=== PATIENT | female | born 1955 | race Caucasian/White ===

== ENCOUNTER 2019-03-15 08:49 | Observation (INO) ==
[2019-03-15] MEDS ORDERED: 0.9 % Sodium Chloride 1,000 ML IVC ONE (09:05)
[2019-03-15] MEDS ORDERED: Isovue-370 500 ML BOTTLE IVP ONE (09:07)
[2019-03-15] MEDS ORDERED: Ondansetron 4 MG/2 ML VIAL IVP ONE ×2 (09:09→11:44)
[2019-03-15] MEDS ORDERED: *HR* Morphine 2 MG/ML SYRINGE IVP ONE (09:10)
--- NOTE | 2019-03-15 09:11 | Emergency Department Note ---
Disposition Clinical Impression: Transaminitis, Febrile illness Abdominal pain Qualifiers: Abdominal location: epigastric Qualified Code(s): R10.13 - Epigastric pain Disposition: Admitted As Inpatient Referrals: Agueda Martin [Primary Care Provider] - Forms: ED Satisfaction Letter, Work/School Release General Adult HPI - General Chief complaint: ED Abdominal Pain Stated complaint: abd pain Time Seen by Provider: 03/15/19 08:52 Source: patient, family Limitations: no limitations - History of Present Illness Pain Scale: 9 - Related Data Home Medications Medication Instructions Recorded Confirmed Amlodipine Besylate mg PO DAILY 09/25/18 09/25/18 Aspirin [Adult Aspirin Regimen] 81 mg PO DAILY 09/25/18 03/15/19 Calcium Carb/Vitamin D3/Vit K1 1 each PO DAILY 09/25/18 03/15/19 [Calcium + D Soft Chewable Tab] Dexlansoprazole [Dexilant] 60 mg PO DAILY 09/25/18 03/15/19 Metoprolol Tartrate 100 mg PO BID 09/25/18 03/15/19 Metoprolol Tartrate [Lopressor] 50 mg PO BID 09/25/18 09/25/18 Mv,Ca,Iron,Mn/FA/Chol/Lance/PABA DAILY 09/25/18 [Body, Hair, Skin and Nails Cap] Naproxen [Naprosyn] 500 mg PO BID PRN 09/25/18 03/15/19 Rosuvastatin [Crestor] 20 mg PO DAILY 09/25/18 03/15/19 Sitagliptin Phos/Metformin HCl 1 each PO BID 09/25/18 03/15/19 [Janumet 50-500 mg Tablet] Vit A/C/E AC/Znox/Cupric Oxide 1 each PO DAILY 09/25/18 09/25/18 [Eye Vitamin-Minerals Tablet] hydroCHLOROthiazide 25 mg PO DAILY 09/25/18 03/15/19 [Hydrochlorothiazide] Previous Rx's Medication Instructions Recorded Ciprofloxacin HCl [Cipro] 500 mg PO BID #14 tablet 01/01/19 metroNIDAZOLE [Flagyl] 500 mg PO TID #21 tablet 01/01/19 Allergies Allergy/AdvReac Type Severity Reaction Status Date / Time acetaminophen [From Percocet] Allergy Hives Verified 03/15/19 09:20 Amoxicillin Allergy Hives Verified 03/15/19 09:20 clavulanic acid Allergy Hives Verified 03/15/19 09:20 [From Augmentin] codeine Allergy Hives Verified 03/15/19 09:20 etodolac Allergy Hives Verified 03/15/19 09:20 oxycodone [From Percocet] Allergy Hives Verified 03/15/19 09:20 fentanyl AdvReac Depression Verified 03/15/19 09:20 morphine AdvReac Hives Verified 03/15/19 09:20 Past Medical History - Past Medical History Medical history: Reports: diabetes, GERD, hyperlipidemia, hypertension, other Surgical history: Reports: appendectomy, cholecystectomy, hysterectomy Psychiatric history: Reports: no psych history - Social History Smoking Status: Former smoker Smokeless Tobacco Status: No Alcohol use: Reports: none Drug use: Reports: none Physical Exam - General Limitations: no limitations General appearance: alert, in no apparent distress Course Vital Signs Temperature 100.4 F H 03/15/19 08:55 Pulse Rate 103 03/15/19 08:55 Respiratory Rate 18 03/15/19 08:55 Blood Pressure 162/96 03/15/19 08:55 O2 Sat by Pulse Oximetry 96 03/15/19 08:55 Temperature 100.1 F H 03/15/19 10:44 Pulse Rate 90 03/15/19 10:44 Respiratory Rate 18 03/15/19 10:44 Blood Pressure 145/89 03/15/19 10:44 O2 Sat by Pulse Oximetry 95 03/15/19 10:44 Oxygen Delivery Oxygen Delivery Nasal Cannula Medical Decision Making - [facility] Narrative Medical decision making narrative: pt appears to have a right lower lobe infiltrate on CXR which would explain her fevers and cough. She is been treated for bronchitis since with Bactrim. Now she has this low-grade fever. She also having some epigastric discomfort. Recent diverticular disease. States she was treated with antibiotics for that a few weeks ago as well. We will workup the make sure there is no other abdominal pathology. Due to her fevers and epigastric pain with do a CT the abdomen and pelvis as well. - Lab Data Result diagrams: 03/15/19 09:14 03/15/19 09:14 Lab Results 03/15/19 03/15/19 03/15/19 Range/Units 09:14 09:14 09:14 WBC 6.1 (4.3-11.1) K/mcL RBC 4.63 (3.82-4.97) M/mcL Hgb 12.5 (11.5-15.4) g/dL Hct 38.4 (35.3-44.9) % MCV 82.9 L (83.0-100.0) fL MCH 27.0 L (28.0-33.3) pg MCHC 32.6 (31.6-35.5) g/dL RDW 14.4 (11.5-14.5) % Plt Count 105 L (140-400) K/mcL MPV 12.5 H (9.4-12.4) fL Immature Gran % 0.7 (0-4) % Seg Neutrophils % 86.3 % Lymphocytes % 4.6 % Monocytes % 4.9 % Eosinophils % 3.3 % Basophils % 0.2 % Neutrophils # 5.3 (1.6-8.9) K/mcL Lymphocytes # 0.3 L (0.6-4.6) K/mcL Monocytes # 0.3 (0.0-1.3) K/mcL Eosinophils # 0.2 (0.0-0.6) K/mcL Basophils # 0.0 (0.0-0.2) K/mcL PT 14.5 H (9.4-12.1) Seconds INR 1.3 Sodium 135 L (136-145) mEq/L Potassium 3.3 L (3.5-5.1) mEq/L Chloride 96 L (98-107) mEq/L Carbon Dioxide 27 (23-29) mEq/L BUN 15 (8-23) mg/dL Creatinine 0.83 (0.60-1.20) mg/dL Est GFR ( Amer) > 60 (> 60) Est GFR (Non-Af Amer) > 60 (> 60) BUN/Creatinine Ratio 18 (6-26) Glucose 148 H (70-105) mg/dL Calculated Osmolality 284 (280-300) Lactic Acid (0.5-2.2) mmol/L Calcium 9.2 (8.6-10.3) mg/dL Total Bilirubin 2.5 H (0.3-1.0) mg/dL Direct Bilirubin 1.0 H (0.0-0.2) mg/dL Indirect Bilirubin 1.5 H (0.0-1.2) mg/dL AST 271 H (13-39) Units/L ALT 245 H (7-52) Units/L Alkaline Phosphatase 141 H (34-104) Units/L Troponin I < 0.03 (< 0.04) ng/mL Serum Total Protein 7.4 (6.4-8.9) g/dL Albumin 4.0 (3.5-5.7) g/dL Globulin 3.4 (2.4-3.5) g/dL Albumin/Globulin Ratio 1.2 (1.1-2.2) Lipase 13 (11-82) Units/L Urine Color (Yellow) Urine Clarity (Clear) Urine pH (5.0-8.0) pH Units Ur Specific [place] (1.010-1.025) Urine Protein (Neg-Trace) mg/dL Urine Glucose (UA) (Normal) mg/dL Urine Ketones (Negative) mg/dL Urine Blood (Negative) Urine Nitrite (Negative) Urine Bilirubin (Negative) Urine Urobilinogen (Normal) mg/dL Ur Leukocyte Esterase (Negative) 03/15/19 03/15/19 Range/Units 09:14 10:42 WBC (4.3-11.1) K/mcL RBC (3.82-4.97) M/mcL Hgb (11.5-15.4) g/dL Hct (35.3-44.9) % MCV (83.0-100.0) fL MCH (28.0-33.3) pg MCHC (31.6-35.5) g/dL RDW (11.5-14.5) % Plt Count (140-400) K/mcL MPV (9.4-12.4) fL Immature Gran % (0-4) % Seg Neutrophils % % Lymphocytes % % Monocytes % % Eosinophils % % Basophils % % Neutrophils # (1.6-8.9) K/mcL Lymphocytes # (0.6-4.6) K/mcL Monocytes # (0.0-1.3) K/mcL Eosinophils # (0.0-0.6) K/mcL Basophils # (0.0-0.2) K/mcL PT (9.4-12.1) Seconds INR Sodium (136-145) mEq/L Potassium (3.5-5.1) mEq/L Chloride (98-107) mEq/L Carbon Dioxide (23-29) mEq/L BUN (8-23) mg/dL Creatinine (0.60-1.20) mg/dL Est GFR ( Amer) (> 60) Est GFR (Non-Af Amer) (> 60) BUN/Creatinine Ratio (6-26) Glucose (70-105) mg/dL Calculated Osmolality (280-300) Lactic Acid 1.9 (0.5-2.2) mmol/L Calcium (8.6-10.3) mg/dL Total Bilirubin (0.3-1.0) mg/dL Direct Bilirubin (0.0-0.2) mg/dL Indirect Bilirubin (0.0-1.2) mg/dL AST (13-39) Units/L ALT (7-52) Units/L Alkaline Phosphatase (34-104) Units/L Troponin I (< 0.04) ng/mL Serum Total Protein (6.4-8.9) g/dL Albumin (3.5-5.7) g/dL Globulin (2.4-3.5) g/dL Albumin/Globulin Ratio (1.1-2.2) Lipase (11-82) Units/L Urine Color Dark Yellow (Yellow) Urine Clarity Clear (Clear) Urine pH 6.0 (5.0-8.0) pH Units Ur Specific [place] 1.020 (1.010-1.025) Urine Protein 30 H (Neg-Trace) mg/dL Urine Glucose (UA) Normal (Normal) mg/dL Urine Ketones Negative (Negative) mg/dL Urine Blood Negative (Negative) Urine Nitrite Negative (Negative) Urine Bilirubin Small H (Negative) Urine Urobilinogen 2.0 H (Normal) mg/dL Ur Leukocyte Esterase Trace H (Negative) - EKG Data EKG #1 EKG attestation: Yes I reviewed and interpreted this EKG. EKG results narrative: EKG shows a rate of 102. Sinus tachycardia. Normal axis. AK interval 140. QRS 94. QTC 41. No signs acute ischemia. Attestation Statement - Attestation Attestation: I examined this patient and my medical decision-making was reviewed with the Resident Physician. I agree with the documented findings, disposition and treatment plan as described except to the extent set forth below.
[2019-03-15] MEDS ORDERED: Pantoprazole 40 MG VIAL IVP ONE (09:13)
--- NOTE | 2019-03-15 09:13 | Emergency Department Note ---
Disposition Clinical Impression: Transaminitis, Febrile illness Abdominal pain Qualifiers: Abdominal location: epigastric Qualified Code(s): R10.13 - Epigastric pain Disposition: Admitted As Inpatient Condition: Fair Referrals: Agueda Martin [Primary Care Provider] - Forms: ED Satisfaction Letter, Work/School Release Time of Disposition: 11:28 Abdominal Pain HPI - General Chief Complaint: ED Abdominal Pain Stated Complaint: abd pain Time Seen by Provider: 03/15/19 08:52 Source: patient, family Mode of arrival: ambulatory Limitations: no limitations Nursing Notes Reviewed: Yes Vital Signs Reviewed: Yes - History of Present Illness HPI Narrative: 63-year-old female with a history of hypertension, diabetes presents for evaluation of abdominal pain. Patient states she was recently treated for bronchitis last with Bactrim and Tessalon Perles. Patient notes epigastric pain that started the day following. States pain is worse after meals. Reports nausea and dry heaves. Denies any diarrhea or constipation. Denies any urinary complaints. Also states she has had a nonproductive cough. No notable fevers at home. No chest pain. Patient does feel short of breath. Patient was also recently treated for diverticular disease with left lower abdominal pain with Cipro Flagyl that pain has since resolved. Patient denies history of pancreatitis. Patient states she does not have her gallbladder or her appendix. She has no stents but states she does have narrowing of her coronaries from remote studies. Pain Scale: 9 - Related Data Home Medications Medication Instructions Recorded Confirmed Amlodipine Besylate mg PO DAILY 09/25/18 09/25/18 Aspirin [Adult Aspirin Regimen] 81 mg PO DAILY 09/25/18 03/15/19 Calcium Carb/Vitamin D3/Vit K1 1 each PO DAILY 09/25/18 03/15/19 [Calcium + D Soft Chewable Tab] Dexlansoprazole [Dexilant] 60 mg PO DAILY 09/25/18 03/15/19 Metoprolol Tartrate 100 mg PO BID 09/25/18 03/15/19 Metoprolol Tartrate [Lopressor] 50 mg PO BID 09/25/18 09/25/18 Mv,Ca,Iron,Mn/FA/Chol/Lance/PABA DAILY 09/25/18 [Body, Hair, Skin and Nails Cap] Naproxen [Naprosyn] 500 mg PO BID PRN 09/25/18 03/15/19 Rosuvastatin [Crestor] 20 mg PO DAILY 09/25/18 03/15/19 Sitagliptin Phos/Metformin HCl 1 each PO BID 09/25/18 03/15/19 [Janumet 50-500 mg Tablet] Vit A/C/E AC/Znox/Cupric Oxide 1 each PO DAILY 09/25/18 09/25/18 [Eye Vitamin-Minerals Tablet] hydroCHLOROthiazide 25 mg PO DAILY 09/25/18 03/15/19 [Hydrochlorothiazide] Previous Rx's Medication Instructions Recorded Ciprofloxacin HCl [Cipro] 500 mg PO BID #14 tablet 01/01/19 metroNIDAZOLE [Flagyl] 500 mg PO TID #21 tablet 01/01/19 Allergies Allergy/AdvReac Type Severity Reaction Status Date / Time acetaminophen [From Percocet] Allergy Hives Verified 03/15/19 09:20 Amoxicillin Allergy Hives Verified 03/15/19 09:20 clavulanic acid Allergy Hives Verified 03/15/19 09:20 [From Augmentin] codeine Allergy Hives Verified 03/15/19 09:20 etodolac Allergy Hives Verified 03/15/19 09:20 oxycodone [From Percocet] Allergy Hives Verified 03/15/19 09:20 fentanyl AdvReac Depression Verified 03/15/19 09:20 morphine AdvReac Hives Verified 03/15/19 09:20 All systems ED: reviewed and negative except as stated. Constitutional: Denies: fever Cardiovascular: Denies: chest pain Respiratory: Reports: cough, dyspnea Gastrointestinal: Reports: abdominal pain, nausea, vomiting Abdominal Pain PMH - Past Medical History Medical history: Reports: diabetes, GERD, hyperlipidemia, hypertension, other Female Surgical History: Reports: appendectomy, cholecystectomy, hysterectomy, other Psychiatric history: Reports: no psych history - Social History Smoking status: Former smoker Alcohol use: Reports: none Drug use: Reports: none Physical Exam - General Limitations: no limitations General appearance: alert, in no apparent distress - Head Head exam: atraumatic, normocephalic, normal inspection - Eye Eye exam: Present: normal appearance - ENT ENT exam: normal exam, mucous membranes dry - Neck Neck exam: Present: normal inspection - Chest Chest inspection: Present: normal inspection, symmetric chest wall rise - Respiratory Respiratory exam: Present: other (Scattered rhonchi). Absent: respiratory distress - Cardiovascular Cardiovascular exam: Present: tachycardia, normal heart sounds - Abdominal Exam Abdominal exam: Present: soft, tenderness. Absent: guarding, rebound - Extremities Exam Extremities exam: Present: normal inspection. Absent: pedal edema - Back Exam Back exam: Present: normal inspection - Neurological Exam Neurological exam: Present: alert, CN II-XII intact - Skin Skin exam: Present: warm, dry, intact, normal color. Absent: rash Course Course Narrative: Patient seen and examined. Patient does meet surgical criteria with her tachycardia and her temperature. Patient will get basic labs including lactate and blood cultures. Patient also get a chest x-ray and CT of the abdomen pelvis given concerns of epigastric pain with a fever. Patient also get appropriate pain control. Disposition anticipated for admission. - Reevaluation(s) Reevaluation #1: Given history of cough as well as fever. Patient will treated clinically for pneumonia. Patient be treated for community acquired pneumonia. Time: 09:40 Reevaluation #2: Patient does have abnormal liver function. Patient denies any recent change in food groups or travel. No history of hepatitis in the past. We will obtain a viral hepatitis panel. Patient's resting comfortably. Time: 09:59 Vital Signs Temperature 100.4 F H 03/15/19 08:55 Pulse Rate 103 03/15/19 08:55 Respiratory Rate 18 03/15/19 08:55 Blood Pressure 162/96 03/15/19 08:55 O2 Sat by Pulse Oximetry 96 03/15/19 08:55 Temperature 100.1 F H 03/15/19 10:44 Pulse Rate 90 03/15/19 10:44 Respiratory Rate 18 03/15/19 10:44 Blood Pressure 145/89 03/15/19 10:44 O2 Sat by Pulse Oximetry 95 03/15/19 10:44 Oxygen Delivery Oxygen Delivery Nasal Cannula Abdominal Pain - [facility] Narrative Medical decision making narrative: Patient presented for concerns of abdominal pain. On exam the patient did have surgical criteria. Patient was treated empirically for pneumonia with her history of cough and fever. Patient was given Rocephin and Zithromax. Patient's lab show transaminitis. Patient does not have her gallbladder. Patient's pain is primarily in the epigastrium. Patient CT scan shows no acute abnormalities. Given the patient's fever as well as transaminitis the patient will be admitted for abdominal pain. Patient's urine shows no signs of infection. Patient has been on several antibiotics in the outpatient setting recently covering for diverticular disease as well as bronchitis. - Lab Data Lab results reviewed: Yes I reviewed the patient's lab results. Result diagrams: 03/15/19 09:14 03/15/19 09:14 Lab Results 03/15/19 03/15/19 03/15/19 Range/Units 09:14 09:14 09:14 WBC 6.1 (4.3-11.1) K/mcL RBC 4.63 (3.82-4.97) M/mcL Hgb 12.5 (11.5-15.4) g/dL Hct 38.4 (35.3-44.9) % MCV 82.9 L (83.0-100.0) fL MCH 27.0 L (28.0-33.3) pg MCHC 32.6 (31.6-35.5) g/dL RDW 14.4 (11.5-14.5) % Plt Count 105 L (140-400) K/mcL MPV 12.5 H (9.4-12.4) fL Immature Gran % 0.7 (0-4) % Seg Neutrophils % 86.3 % Lymphocytes % 4.6 % Monocytes % 4.9 % Eosinophils % 3.3 % Basophils % 0.2 % Neutrophils # 5.3 (1.6-8.9) K/mcL Lymphocytes # 0.3 L (0.6-4.6) K/mcL Monocytes # 0.3 (0.0-1.3) K/mcL Eosinophils # 0.2 (0.0-0.6) K/mcL Basophils # 0.0 (0.0-0.2) K/mcL PT 14.5 H (9.4-12.1) Seconds INR 1.3 Sodium 135 L (136-145) mEq/L Potassium 3.3 L (3.5-5.1) mEq/L Chloride 96 L (98-107) mEq/L Carbon Dioxide 27 (23-29) mEq/L BUN 15 (8-23) mg/dL Creatinine 0.83 (0.60-1.20) mg/dL Est GFR ( Amer) > 60 (> 60) Est GFR (Non-Af Amer) > 60 (> 60) BUN/Creatinine Ratio 18 (6-26) Glucose 148 H (70-105) mg/dL Calculated Osmolality 284 (280-300) Lactic Acid (0.5-2.2) mmol/L Calcium 9.2 (8.6-10.3) mg/dL Total Bilirubin 2.5 H (0.3-1.0) mg/dL Direct Bilirubin 1.0 H (0.0-0.2) mg/dL Indirect Bilirubin 1.5 H (0.0-1.2) mg/dL AST 271 H (13-39) Units/L ALT 245 H (7-52) Units/L Alkaline Phosphatase 141 H (34-104) Units/L Troponin I < 0.03 (< 0.04) ng/mL Serum Total Protein 7.4 (6.4-8.9) g/dL Albumin 4.0 (3.5-5.7) g/dL Globulin 3.4 (2.4-3.5) g/dL Albumin/Globulin Ratio 1.2 (1.1-2.2) Lipase 13 (11-82) Units/L Urine Color (Yellow) Urine Clarity (Clear) Urine pH (5.0-8.0) pH Units Ur Specific [place] (1.010-1.025) Urine Protein (Neg-Trace) mg/dL Urine Glucose (UA) (Normal) mg/dL Urine Ketones (Negative) mg/dL Urine Blood (Negative) Urine Nitrite (Negative) Urine Bilirubin (Negative) Urine Urobilinogen (Normal) mg/dL Ur Leukocyte Esterase (Negative) Urine Microscopic WBC (0-3) per hpf Ur Squamous Epith Cells (None-Few) per lpf Urine Bacteria (None-Few) per hpf Hyaline Casts (None-Few) per lpf Ur Culture Indicated? (NO) 03/15/19 03/15/19 Range/Units 09:14 10:42 WBC (4.3-11.1) K/mcL RBC (3.82-4.97) M/mcL Hgb (11.5-15.4) g/dL Hct (35.3-44.9) % MCV (83.0-100.0) fL MCH (28.0-33.3) pg MCHC (31.6-35.5) g/dL RDW (11.5-14.5) % Plt Count (140-400) K/mcL MPV (9.4-12.4) fL Immature Gran % (0-4) % Seg Neutrophils % % Lymphocytes % % Monocytes % % Eosinophils % % Basophils % % Neutrophils # (1.6-8.9) K/mcL Lymphocytes # (0.6-4.6) K/mcL Monocytes # (0.0-1.3) K/mcL Eosinophils # (0.0-0.6) K/mcL Basophils # (0.0-0.2) K/mcL PT (9.4-12.1) Seconds INR Sodium (136-145) mEq/L Potassium (3.5-5.1) mEq/L Chloride (98-107) mEq/L Carbon Dioxide (23-29) mEq/L BUN (8-23) mg/dL Creatinine (0.60-1.20) mg/dL Est GFR ( Amer) (> 60) Est GFR (Non-Af Amer) (> 60) BUN/Creatinine Ratio (6-26) Glucose (70-105) mg/dL Calculated Osmolality (280-300) Lactic Acid 1.9 (0.5-2.2) mmol/L Calcium (8.6-10.3) mg/dL Total Bilirubin (0.3-1.0) mg/dL Direct Bilirubin (0.0-0.2) mg/dL Indirect Bilirubin (0.0-1.2) mg/dL AST (13-39) Units/L ALT (7-52) Units/L Alkaline Phosphatase (34-104) Units/L Troponin I (< 0.04) ng/mL Serum Total Protein (6.4-8.9) g/dL Albumin (3.5-5.7) g/dL Globulin (2.4-3.5) g/dL Albumin/Globulin Ratio (1.1-2.2) Lipase (11-82) Units/L Urine Color Dark Yellow (Yellow) Urine Clarity Clear (Clear) Urine pH 6.0 (5.0-8.0) pH Units Ur Specific [place] 1.020 (1.010-1.025) Urine Protein 30 H (Neg-Trace) mg/dL Urine Glucose (UA) Normal (Normal) mg/dL Urine Ketones Negative (Negative) mg/dL Urine Blood Negative (Negative) Urine Nitrite Negative (Negative) Urine Bilirubin Small H (Negative) Urine Urobilinogen 2.0 H (Normal) mg/dL Ur Leukocyte Esterase Trace H (Negative) Urine Microscopic WBC 3-5 H (0-3) per hpf Ur Squamous Epith Cells Many H (None-Few) per lpf Urine Bacteria None Seen (None-Few) per hpf Hyaline Casts None Seen (None-Few) per lpf Ur Culture Indicated? NO. A (NO) - Radiology Data Radiology results reviewed: Yes I reviewed the patient's radiology results. Abdomen/Pelvis CT 03/15/19 09:07 IMPRESSION: 1. No acute abnormality identified within the abdomen or pelvis. 2. Diverticulosis of the colon without acute diverticulitis. 3. There is a small lower ventral wall hernia containing a portion of colon. No bowel obstruction. 4. Nonobstructing right renal stone. 5. Diffuse fatty infiltration of the liver. D/ / Kwasi Lockwood MD / Kwasi Lockwood MD Interpreting Provider: Kwasi Lockwood MD Chest X-Ray 03/15/19 09:08 IMPRESSION: No acute pulmonary finding. D/ / Christian Guzman MD / Christian Guzman MD Interpreting Provider: Christian Guzman MD - EKG Data EKG attestation: Yes I reviewed and interpreted this EKG. EKG shows normal: sinus rhythm Rate: tachycardia Rhythm: NSR [place]/QRS: normal Q waves: aVR T wave inversions noted in: III, v1 Interpretation: no acute changes, nonspecific ST-T wave changes S.B.ASaniaRSania - [email or web address] Situation: Demographics Background: Presenting Complaint Assessment: Vital Signs, Course and respsone to treatment, Patient/Family Expectation Recommendation: Barrier(s) to disposition, Recommendation based on pending studies, treatments, or consults S.B.A.Abraham Report Given to: Dr. Folsusana Greene Repor Time: 11:28
[2019-03-15] MEDS ORDERED: *HR* HYDROmorphone (PF) 1 MG/ML SYRINGE IVP ONE (09:22)
[2019-03-15] MEDS ORDERED: Azithromycin 500 MG in D5% in Water 250 ML IVPB ONE (09:24)
[2019-03-15] MEDS ORDERED: cefTRIAXone 1,000 MG in Water for inj. (sterile) 20 ML 10 ML IVP ONE (09:24)
[2019-03-15 09:26] LABS: Basophils % 0.2 %; Eosinophils # 0.2 K/mcL (0.0-0.6); Eosinophils % 3.3 %; Hematocrit 38.4 % (35.3-44.9); Hemoglobin 12.5 g/dL (11.5-15.4); Immature Granulocytes % 0.7 % (0-4); Lymphocytes # 0.3 K/mcL (0.6-4.6); Lymphocytes % 4.6 %; Mean Corpuscular HGB Conc 32.6 g/dL (31.6-35.5); Mean Corpuscular Volume 82.9 fL (83.0-100.0); Mean Platelet Volume 12.5 fL (9.4-12.4); Monocytes # 0.3 K/mcL (0.0-1.3); Monocytes % 4.9 %; Neutrophils # 5.3 K/mcL (1.6-8.9); Platelet Count 105 K/mcL (140-400); Red Blood Count 4.63 M/mcL (3.82-4.97); Red Cell Distribution Width 14.4 % (11.5-14.5); Segmented Neutrophils % 86.3 %
[2019-03-15 09:34] LABS: INR 1.3; Prothrombin Time 14.5 Seconds (9.4-12.1)
[2019-03-15 09:49] LABS: Alanine Aminotransferase 245 Units/L (7-52); Albumin/Globulin Ratio 1.2 (1.1-2.2); Alkaline Phosphatase 141 Units/L (34-104); Aspartate Amino Transferase 271 Units/L (13-39); BUN/Creatinine Ratio 18 (6-26); Bilirubin,Indirect 1.5 mg/dL (0.0-1.2); Bilirubin,Total 2.5 mg/dL (0.3-1.0); Blood Urea Nitrogen 15 mg/dL (8-23); Calcium 9.2 mg/dL (8.6-10.3); Carbon Dioxide 27 mEq/L (23-29); Chloride 96 mEq/L (98-107); Globulin 3.4 g/dL (2.4-3.5); Glucose 148 mg/dL (70-105); Lipase 13 Units/L (11-82); Osmolality,Calculated 284 (280-300); Potassium 3.3 mEq/L (3.5-5.1); Sodium 135 mEq/L (136-145); Total Protein 7.4 g/dL (6.4-8.9); Troponin I < 0.03 ng/mL (< 0.04); eGFR For Non-African Americans > 60 (> 60)
[2019-03-15 10:54] LABS: Bilirubin,Urine Small (Negative); Blood,Urine Negative (Negative); Clarity,Urine Clear (Clear); Color,Urine Dark Yellow (Yellow); Glucose,Urine (UA) Normal (Normal); Ketones,Urine Negative (Negative); Leukocyte Esterase,Urine Trace (Negative); Nitrite,Urine Negative (Negative); Protein,Urine 30 mg/dL (Neg-Trace)
[2019-03-15 10:56] LABS: Bacteria,Urine None Seen per hpf (None-Few); Hyaline Casts,Urine None Seen per lpf (None-Few); Squamous Epithelial Cell,Urine Many per lpf (None-Few)
[2019-03-15] MEDS ORDERED: Naloxone 0.4 MG/ML INJ IVP PRN (11:36)
[2019-03-15] MEDS ORDERED: D5% in Water 1,000 ML IVC PRN (11:40)
[2019-03-15] MEDS ORDERED: *HR* Dextrose 50 % in Water (Syg) 50 ML SYRINGE IVP PRN (11:40)
[2019-03-15] MEDS ORDERED: Dextrose Gel 15 GM/37.5 ML TUBE PO PRN ×2 (11:40)
[2019-03-15] MEDS ORDERED: traMADol 50 MG TABLET PO PRN (11:43)
[2019-03-15 11:50] LABS: Estimated Average Glucose 128 mg/dl; Hemoglobin A1C 6.1 %
--- NOTE | 2019-03-15 12:17 | Internal Med History&Physical ---
Date of Encounter: 03/15/19 Time of Encounter: 12:00 Internal Medicine - H&P: HPI Chief complaint: Abdominal pain since History of present illness: Ms. Richard is a 63 year old female with pmh of diabetes, dyslipidemia presenting with complaints of abdominal pain since . Patient says she had had some coughing for a while and went to her PCP who prescribed her a course of bactrim for acute bronchitis. She says after the 2nd dose of bactrim, she began to experience an achy abdominal pain in the epigastric area, non radiating that prevented her from sleeping. Pain is worse with meals and associated with nausea. She denies any fevres, admits to intermittent chills, denies any diarrhea. She came to the ER, because the pain wasn' t going away. In the ER, workup was essentially normal, but she was noted to have a transminitis. She also had a low grade fever of 100.4. She was started on fluids and ceftriaxone and azithromycin and she is being admitted for further management Past Med Surg Social Fam HX - Past Medical History Medical history: diabetes, GERD, hyperlipidemia, hypertension, other Additional medical history: HERNIA, DIVERTICULITIS, IRRITANT DERMATITIS Psychiatric history: no psych history - Past Surgical History Surgical History: appendectomy, cholecystectomy, hysterectomy Additional surgical history: bowel obs. repair, cyst removal - Social History Smoking Status: Former smoker Smokeless Tobacco Status: No Alcohol use: none Drug use: none Internal Medicine - H&P: Meds Amlodipine Besylate mg PO DAILY 09/25/18 [History] Aspirin [Adult Aspirin Regimen] 81 mg PO DAILY 09/25/18 [History] Calcium Carb/Vitamin D3/Vit K1 [Calcium + D Soft Chewable Tab] 1 each PO DAILY 09/25/18 [History] Dexlansoprazole [Dexilant] 60 mg PO DAILY 09/25/18 [History] Metoprolol Tartrate 100 mg PO BID 09/25/18 [History] Metoprolol Tartrate [Lopressor] 50 mg PO BID 09/25/18 [History] Mv,Ca,Iron,Mn/FA/Chol/Lance/PABA [Body, Hair, Skin and Nails Cap] DAILY 09/25/18 [History] Naproxen [Naprosyn] 500 mg PO BID PRN 09/25/18 [History] Rosuvastatin [Crestor] 20 mg PO DAILY 09/25/18 [History] Sitagliptin Phos/Metformin HCl [Janumet 50-500 mg Tablet] 1 each PO BID 09/25/18 [History] Vit A/C/E AC/Znox/Cupric Oxide [Eye Vitamin-Minerals Tablet] 1 each PO DAILY 09/25/18 [History] hydroCHLOROthiazide [Hydrochlorothiazide] 25 mg PO DAILY 09/25/18 [History] Ciprofloxacin HCl [Cipro] 500 mg PO BID #14 tablet 01/01/19 [Rx] metroNIDAZOLE [Flagyl] 500 mg PO TID #21 tablet 01/01/19 [Rx] Allergy/AdvReac Type Severity Reaction Status Date / Time acetaminophen [From Percocet] Allergy Hives Verified 03/15/19 09:20 Amoxicillin Allergy Hives Verified 03/15/19 09:20 clavulanic acid Allergy Hives Verified 03/15/19 09:20 [From Augmentin] codeine Allergy Hives Verified 03/15/19 09:20 etodolac Allergy Hives Verified 03/15/19 09:20 oxycodone [From Percocet] Allergy Hives Verified 03/15/19 09:20 fentanyl AdvReac Depression Verified 03/15/19 09:20 morphine AdvReac Hives Verified 03/15/19 09:20 All Systems PM: A 10-system review of systems was performed and is negative for pertinent findings except as documented above in the HPI. - Constitutional Constitutional: no chills, no fever(s), no night sweats - EENT Eyes: no change in vision, no discharge, no pain, no photophobia Ears: no ear discharge, no ear pain, no tinnitus Nose, mouth and throat: no dysphagia, no nasal discharge, no neck pain, no sore throat - Cardiovascular Cardiovascular ROS IM: no chest pain, no diaphoresis, no dyspnea, no lightheadedness, no palpitations, no syncope - Respiratory Respiratory: no cough, no dyspnea, no wheezing, no excessive phlegm production - Gastrointestinal Gastrointestinal: abdominal pain, no diarrhea, no hematemesis, no hematochezia, no melena, no nausea, no vomiting - Genitourinary Genitourinary: no change in urinary stream, no dysuria, no flank pain, no hematuria - Musculoskeletal Musculoskeletal ROS IM: no numbness, no tingling - Integumentary Integumentary IM: no rash, no unusual bruising - Neurological Neurological ROS: no confusion, no convulsions, no focal weakness, no numbness, no tingling, no tremor(s) - Hematologic/Lymphatic Hematologic/Lymphatic: no easy bruising - Constitutional Vitals: Temp Pulse Resp BP Pulse Ox 99.1 F 81 18 142/86 96 03/15/19 11:44 03/15/19 11:44 03/15/19 12:09 03/15/19 12:09 03/15/19 11:44 Exam: NAD - Head Head exam: Present: atraumatic, normocephalic - Eye Eye exam: Present: PERRL, conjuntiva pink, sclera anicteric Pupils: Present: PERRL - Neck Neck exam general surgery: Present: supple, trachea midline. Absent: lymphadenopathy - Respiratory Respiratory exam: Present: CTAB. Absent: accessory muscle use, rales, rhonchi, wheezes - Cardiovascular Cardiovascular exam: Present: RRR, +S1, +S2. Absent: diastolic murmur, gallop, rubs, systolic murmur - GI/Abdominal GI/Abdominal exam: Present: normal bowel sounds, soft, no peritoneal signs. Absent: distended, tenderness - Extremities Exam Extremities exam: Present: warm, radial pulses palpable and symmetrical. Absent: calf tenderness, cyanotic, pedal edema - Neurological Exam Neurological exam: Present: CN II-XII intact, oriented X3, no focal deficits. Absent: pronater drift, facial droop, speech deficit - Skin Skin exam: Present: dry, intact Internal Med - H&P Results - Labs CBC & Chem 7: 03/15/19 09:14 03/15/19 09:14 Labs: Short CBC 03/15/19 Range/Units 09:14 WBC 6.1 (4.3-11.1) K/mcL Hgb 12.5 (11.5-15.4) g/dL Hct 38.4 (35.3-44.9) % Plt Count 105 L (140-400) K/mcL Neutrophils # 5.3 (1.6-8.9) K/mcL BMP 03/15/19 09:14 Sodium 135 L Potassium 3.3 L Chloride 96 L Carbon Dioxide 27 BUN 15 Creatinine 0.83 Glucose 148 H Calcium 9.2 Cardiac Enzymes 03/15/19 Range/Units 09:14 Troponin I < 0.03 (< 0.04) ng/mL Liver Function 03/15/19 Range/Units 09:14 Total Bilirubin 2.5 H (0.3-1.0) mg/dL Direct Bilirubin 1.0 H (0.0-0.2) mg/dL AST 271 H (13-39) Units/L ALT 245 H (7-52) Units/L Alkaline Phosphatase 141 H (34-104) Units/L Albumin 4.0 (3.5-5.7) g/dL Urine 03/15/19 Range/Units 10:42 Urine Color Dark Yellow (Yellow) Urine Clarity Clear (Clear) Urine pH 6.0 (5.0-8.0) pH Units Ur Specific [place] 1.020 (1.010-1.025) Urine Protein 30 H (Neg-Trace) mg/dL Urine Glucose (UA) Normal (Normal) mg/dL - Impressions ITS Impressions Abdomen/Pelvis CT 03/15/19 09:07 IMPRESSION: 1. No acute abnormality identified within the abdomen or pelvis. 2. Diverticulosis of the colon without acute diverticulitis. 3. There is a small lower ventral wall hernia containing a portion of colon. No bowel obstruction. 4. Nonobstructing right renal stone. 5. Diffuse fatty infiltration of the liver. D/ / Kwasi Lockwood MD / Kwasi Lockwood MD Interpreting Provider: Kwasi Lockwood MD Chest X-Ray 03/15/19 09:08 IMPRESSION: No acute pulmonary finding. D/ / Christian Guzman MD / Christian Guzman MD Interpreting Provider: Christian Guzman MD - Assessment and Plan (1) Abdominal pain Current Visit: Yes Status: Acute Assessment and plan: Pt comes in with abdominal pain of 4 days duration after taking bactrim and transaminitis CT abdomen negative for any acute pathology. HAs mildy elevated LFTs in the 200s Possibly secondary to bactrim induced cholestasis. Will hydrate , hold bactrim, pain control Trend LFTs. Hepatitis panel ordered. Denies alcohol abuse Qualifiers: Abdominal location: epigastric Qualified Code(s): R10.13 - Epigastric pain (2) Transaminitis Current Visit: Yes Status: Acute Assessment and plan: See #1. Hydration and monitor LFTS. F/U hepatitis panel CT negative for any acute findings (3) Fever Current Visit: Yes Status: Acute Assessment and plan: Unclear etiology. HAd low grade fever of 100.4 on arrival. Admits to viral bronchitis which she completed 5 dose s of bactrim for Received cefriaxone and azithromycin in ER. CXR and CT abdomen negative for any source of infection Hold antibiotics. Blood cultures ordered. Obtain respiratory panel Qualifiers: Qualified Code(s): R50.9 - Fever, unspecified (4) Diabetes Current Visit: Yes Status: Acute Assessment and plan: Continue insulin and monitor fingersticks Qualifiers: Qualified Code(s): E11.9 - Type 2 diabetes mellitus without complications (5) Hypokalemia Current Visit: Yes Status: Acute Assessment and plan: Replaced (6) DVT prophylaxis Current Visit: Yes Status: Acute Assessment and plan: heparin sc - Time Spent With Patient Total time spent is greater than 50% in coordination of care (as documented) at patient's floor/unit and/or counseling patient:
[2019-03-15] MEDS ORDERED: Ondansetron 4 MG/2 ML VIAL IVP PRN (12:25)
[2019-03-15] MEDS: 0.9 % Sodium Chloride 1,000 ML IVC SCH ×2 (13:51→22:47)
[2019-03-15 16:13] LABS: Adenovirus Not Detected (Not Detect); Bordetella Pertussis Not Detected (Not Detect); Chlamydophila pneumoniae Not Detected (Not Detect); Coronavirus 229E Not Detected (Not Detect); Coronavirus HKU1 Not Detected (Not Detect); Coronavirus NL63 Not Detected (Not Detect); Coronavirus OC43 Not Detected (Not Detect); Human Metapneumovirus DETECTED (Not Detect); Human Rhinovirus/Enterovirus Not Detected (Not Detect); Influenza A Subtype 2009 H1 Not Detected (Not Detect); Influenza A Untypeable Not Detected (Not Detect); Influenza B Not Detected (Not Detect); Mycoplasma pneumoniae Not Detected (Not Detect); Parainfluenza Virus 1 Not Detected (Not Detect); Parainfluenza Virus 2 Not Detected (Not Detect); Parainfluenza Virus 3 Not Detected (Not Detect); Parainfluenza Virus 4 Not Detected (Not Detect); Respiratory Syncytial Virus Not Detected (Not Detect)
[2019-03-15] MEDS: Insulin LISPRO 300 UNITS/3 ML VIAL SQ SCH (17:57)
[2019-03-15] MEDS: Ibuprofen 600 MG TABLET PO PRN (19:02)
[2019-03-15] MEDS: Metoprolol 100 MG TABLET PO SCH (21:30)
[2019-03-16 04:08] LABS: Basophils % 0.3 %; Hematocrit 38.6 % (35.3-44.9)
[2019-03-16 04:10] LABS: Eosinophils # 0.2 K/mcL (0.0-0.6); Eosinophils % 4.1 %; Hemoglobin 12.1 g/dL (11.5-15.4); Immature Granulocytes % 0.5 % (0-4); Immature Platelets 10.7 % (1.1-6.1); Lymphocytes # 0.5 K/mcL (0.6-4.6); Lymphocytes % 13.4 %; Mean Corpuscular HGB Conc 31.3 g/dL (31.6-35.5); Mean Corpuscular Hemoglobin 27.1 pg (28.0-33.3); Mean Corpuscular Volume 86.4 fL (83.0-100.0); Mean Platelet Volume 12.4 fL (9.4-12.4); Monocytes # 0.3 K/mcL (0.0-1.3); Monocytes % 7.7 %; Neutrophils # 2.7 K/mcL (1.6-8.9); Platelet Count 100 K/mcL (140-400); Red Blood Count 4.47 M/mcL (3.82-4.97); Red Cell Distribution Width 14.8 % (11.5-14.5)
[2019-03-16 04:14] LABS: Platelet Estimate Decreased (Normal)
[2019-03-16 04:28] LABS: BUN/Creatinine Ratio 18 (6-26); Blood Urea Nitrogen 12 mg/dL (8-23); Calcium 8.8 mg/dL (8.6-10.3); Carbon Dioxide 28 mEq/L (23-29); Chloride 102 mEq/L (98-107); Glucose 101 mg/dL (70-105); Magnesium 1.6 mg/dL (1.6-2.6); Osmolality,Calculated 286 (280-300); Phosphorous 2.2 mg/dL (2.7-4.5); Potassium 3.5 mEq/L (3.5-5.1); Sodium 138 mEq/L (136-145); eGFR For Non-African Americans > 60 (> 60)
[2019-03-16 04:30] LABS: Albumin 3.7 g/dL (3.5-5.7); Albumin/Globulin Ratio 1.1 (1.1-2.2); Bilirubin,Direct 0.6 mg/dL (0.0-0.2); Bilirubin,Indirect 1.1 mg/dL (0.0-1.2); Bilirubin,Total 1.7 mg/dL (0.3-1.0); Globulin 3.3 g/dL (2.4-3.5)
[2019-03-16 05:09] VITALS: BP 128/73
[2019-03-16] MEDS: Ibuprofen 600 MG TABLET PO PRN (05:09)
[2019-03-16] MEDS: Insulin LISPRO 300 UNITS/3 ML VIAL SQ SCH (08:43)
[2019-03-16] MEDS: Metoprolol 100 MG TABLET PO SCH (08:47)
[2019-03-16] MEDS: 0.9 % Sodium Chloride 1,000 ML IVC SCH (08:47)
[2019-03-16] MEDS ORDERED: Aspirin Enteric Coated 81 MG Tablet PO SCH (09:00)
[2019-03-16] MEDS ORDERED: Cholecalciferol (D-3) 1,000 UNIT TABLET PO SCH (09:00)
--- NOTE | 2019-03-16 09:39 | Discharge Summary ---
- NOTES TO OUTPATIENT PROVIDER Notes to Outpatient Provider: Repeat LFT in 3 days. Orders not resulted at time of discharge: Pending orders 03/15/19 09:14 Culture,Blood [] Stat Viral hepatitis panel [Hepatitis Prof.(Routine A,B,C)] Stat Date of Encounter: 03/16/19 Time of Encounter: 07:45 - Discharge Diagnosis (1) Abdominal pain Priority: Primary Status: Acute Qualifiers: Abdominal location: epigastric Qualified Code(s): R10.13 - Epigastric pain (2) Transaminitis Priority: Secondary Status: Acute (3) Diabetes Priority: Secondary Status: Acute Qualifiers: Qualified Code(s): E11.9 - Type 2 diabetes mellitus without complications (4) Hypokalemia Priority: Secondary Status: Acute (5) Fever Priority: Secondary Status: Acute Qualifiers: Qualified Code(s): R50.9 - Fever, unspecified (6) DVT prophylaxis Priority: Secondary Status: Acute (7) URI (upper respiratory infection) Priority: Secondary Status: Acute Qualifiers: URI type: unspecified viral URI Qualified Code(s): J06.9 - Acute upper respiratory infection, unspecified Hospital course: Ms. Richard is a 63 year old female with history of diabetes, hypertension, hyperlipidemia, morbid obesity, who was admitted for abdominal pain and transaminitis. She was recently started on Bactrim for presumably infectious bronchitis. AST/ALT were in the 200s associated with total bilirubin of 2.5. Spontaneously improved. CT did not show any acute pathology other than fatty liver. Respiratory infection panel was +ve for metapneumovirus. She will be discharged home with repeat LFT in 3 days time symptomatically management for URI. Discharge discussed with: patient, nurse - Time Spent with Patient Total time spent providing and/or coordinating discharge services: 25 mins - Discharge Medications Prescriptions: Continued Metoprolol Tartrate 100 mg PO BID hydroCHLOROthiazide [Hydrochlorothiazide] 25 mg PO DAILY Sitagliptin Phos/Metformin HCl [Janumet 50-500 mg Tablet] 1 tab PO BID Rosuvastatin [Crestor] 20 mg PO DAILY Dexlansoprazole [Dexilant] 60 mg PO DAILY amLODIPine [Norvasc] 5 mg PO BID Aspirin [Adult Aspirin Regimen] 81 mg PO DAILY B Infantis/B Ani/B Tung/B Bifid [Gnp Probiotic 4X Caplet] 1 tab PO DAILY Calcium Carbonate/Vitamin D3 [Calcium 600-Vit D3 800 Tablet] 1 tab PO DAILY Mv,Leonel,Iron,Mn/Folic Acid/Chol [Hair, Skin and Nails Capsule] 1 cap PO DAILY Naproxen Sodium [Naproxen Sodium ER] 500 mg PO BID Non-Formulary Medication 1 tab PO DAILY Home Medications: Dexlansoprazole [Dexilant] 60 mg PO DAILY 09/25/18 [History] Metoprolol Tartrate 100 mg PO BID 09/25/18 [History] Rosuvastatin [Crestor] 20 mg PO DAILY 09/25/18 [History] Sitagliptin Phos/Metformin HCl [Janumet 50-500 mg Tablet] 1 tab PO BID 09/25/18 [History] hydroCHLOROthiazide [Hydrochlorothiazide] 25 mg PO DAILY 09/25/18 [History] Aspirin [Adult Aspirin Regimen] 81 mg PO DAILY 03/16/19 [History] B Infantis/B Ani/B Tung/B Bifid [Gnp Probiotic 4X Caplet] 1 tab PO DAILY 03/16/19 [History] Calcium Carbonate/Vitamin D3 [Calcium 600-Vit D3 800 Tablet] 1 tab PO DAILY 03/16/19 [History] Mv,Leonel,Iron,Mn/Folic Acid/Chol [Hair, Skin and Nails Capsule] 1 cap PO DAILY 03/16/19 [History] Naproxen Sodium [Naproxen Sodium ER] 500 mg PO BID 03/16/19 [History] Non-Formulary Medication 1 tab PO DAILY 03/16/19 [History] amLODIPine [Norvasc] 5 mg PO BID 03/16/19 [History] Allergies/Adverse Reactions: Allergy/AdvReac Type Severity Reaction Status Date / Time acetaminophen [From Percocet] Allergy Hives Verified 03/15/19 09:20 Amoxicillin Allergy Hives Verified 03/15/19 09:20 clavulanic acid Allergy Hives Verified 03/15/19 09:20 [From Augmentin] codeine Allergy Hives Verified 03/15/19 09:20 etodolac Allergy Hives Verified 03/15/19 09:20 oxycodone [From Percocet] Allergy Hives Verified 03/15/19 09:20 fentanyl AdvReac Depression Verified 03/15/19 09:20 morphine AdvReac Hives Verified 03/15/19 09:20 Date of admission: 03/15/19 11:34 Primary care physician: Agueda Martin - Constitutional Vitals: Temp Pulse Resp BP Pulse Ox 97.7 F 75 14 128/73 93 03/16/19 05:07 03/16/19 05:07 03/16/19 05:07 03/16/19 05:07 03/16/19 05:07 Exam: General: Alert and oriented, not in acute distress. Cardiovascular:Normal S1 & S2, No JVD. Pulse regular. Lungs: clear to auscultation, no wheezes/rales Abdomen:Soft, non-tender, no rigidity. Alba's negative Extremities:No deformity or swelling Neurological:Normal cognition and motor skills. Non-focal - Patient Status Disposition: Home, Self-Care Condition: Fair Functional capacity at discharge: independent ambulation Overall status at discharge: patient is progressing back to baseline - Discharge Instructions Instructions: Diabetes Mellitus Type 2 in Adults (DC) Follow Up With: Agueda Martin [Primary Care Provider] - - Diet and Activity Activity: resume usual activities as tolerated Diet: advance to your usual diet
[2019-03-16 16:08] LABS: Hepatitis B Surface Antigen Nonreactive (Nonreactive)
[2019-03-16 16:38] LABS: Hepatitis A Antibody IgM Nonreactive (Nonreactive); Hepatitis B Core IgM Nonreactive (Nonreactive)
[2019-03-16 16:39] LABS: Hepatitis C Virus Antibody Nonreactive (Nonreactive)
--- NOTE | 2019-03-17 14:56 | Electrocardiograph Report ---
[place] [id number] Test Date: 2019-03-15 Pat Name: Cassia Richard Department: [id number] Room: 3A55 Gender: F [employer]: : 1955 Requested By: Yomi Caldwell Order Number: [id number] Reading MD: Jesi Martin Measurements Intervals [place] Rate: 102 P: 71 MN: 140 QRS: 62 QRSD: 94 T: -3 QT: 369 QTc: 481 Interpretive Statements Sinus tachycardia Nonspecific ST-T wave changes Electronically Signed On 03-17-2019 14:55:16 EDT by Jesi Martin
== END 2019-03-16 13:15 | disposition home or self-care (01) ==
LOC: EMEROOARM 08:49 → 3ANU 08:49 → SUATTDRO 11:34 → 3ANU 12:22
PROVIDERS: ADMIT Student in an Organized Health Care Education/Training Program; ATTEND Internal Medicine